=== PATIENT | male | born 1935 | race Caucasian/White ===

== ENCOUNTER 2018-11-29 09:56 | Observation (INO) | payer MEDICARE, BC ==
[~2018-11-29 09:56] MED LIST: CEFAZOLIN 1 GM INJ; SEVOFLURANE 15 MIN
[2018-11-29] MEDS: CEFAZOLIN 2 GM/50 ML (PMX) 50 ML IVPB (10:00)
[2018-11-29] MEDS: LACTATED RINGER'S 1,000 ML IV (10:00)
[2018-11-29] MEDS ORDERED: SUCCINYLCHOLINE CHLORIDE 100 MG/5 ML SYG IV (11:41)
[2018-11-29] MEDS ORDERED: LIDOCAINE 2% (SDV) 5 ML INJ (11:41)
[2018-11-29] MEDS ORDERED: PROPOFOL 20 ML (11:41)
[2018-11-29] MEDS ORDERED: NEOSTIGMINE 3 MG/3 ML SYRINGE ×2 (11:41→11:56)
[2018-11-29] MEDS ORDERED: ROCURONIUM 50 MG INJ ×2 (11:41→11:56)
[2018-11-29] MEDS ORDERED: GLYCOPYRROLATE 0.4 MG INJ ×3 (11:41→11:56)
[2018-11-29] MEDS ORDERED: MEPERIDINE 100 MG INJ (11:42)
[2018-11-29] MEDS ORDERED: BISACODYL 10 MG SUPP PR (12:30)
[2018-11-29] MEDS ORDERED: NALOXONE (0.4 MG/ML) INJ IV (12:30)
[2018-11-29] MEDS ORDERED: CEPASTAT LOZENGE MT (12:30)
[2018-11-29] MEDS ORDERED: AL HYDROX/MG HYDROX/SIMETH 30 ML CUP PO (12:30)
[2018-11-29] MEDS ORDERED: DIPHENHYDRAMINE 25 MG CAP PO (12:30)
[2018-11-29] MEDS ORDERED: ACETAMINOPHEN 325 MG TAB PO (12:30)
[2018-11-29] MEDS ORDERED: DIPHENHYDRAMINE 50 MG INJ IV ×2 (12:30→14:30)
[2018-11-29] MEDS: THROMBIN 5000 UNIT VIAL (13:44)
[2018-11-29] MEDS: BUPIVACAINE 0.25%/EPI (SDV) 30 ML INJ (13:44)
[2018-11-29] MEDS: CA CHLORIDE 10% 10 ML SYRINGE (13:45)
[2018-11-29] MEDS: POLYMYXIN/BACITRACIN 1L IRRIG (13:46)
[2018-11-29] MEDS ORDERED: ATROPINE 1 MG/10 ML SYRINGE (13:54)
[2018-11-29] MEDS ORDERED: EPHEDrine 25 MG/5 ML SYG (13:54)
[2018-11-29] MEDS: HEPARIN 1000 UNITS/ML 10 ML INJ (13:56)
[2018-11-29] MEDS: GELATIN SIZE 100 SPONGE (13:59)
[2018-11-29] MEDS ORDERED: ONDANSETRON 4 MG INJ (14:13)
[2018-11-29] MEDS: BUPIVACAINE 0.25% (MPF) 30 ML INJ (14:27)
[2018-11-29] MEDS ORDERED: METOCLOPRAMIDE 10 MG INJ IV (14:30)
[2018-11-29] MEDS ORDERED: HYDROmorphONE 1 MG/5 ML IV SYRINGE IV ×3 (14:30)
[2018-11-29] MEDS ORDERED: MIDAZOLAM 1 MG/ML 2 ML INJ IV (14:30)
[2018-11-29] MEDS ORDERED: FENTAnyl 50 MCG/ML VIAL IV ×2 (14:30)
[2018-11-29] MEDS ORDERED: hydrALAzine 20 MG INJ IV (14:30)
[2018-11-29] MEDS ORDERED: LABETALOL HCL 20MG INJ IV (14:30)
[2018-11-29] MEDS ORDERED: EPHEDrine 25 MG/5 ML SYG IV (14:30)
[2018-11-29] MEDS ORDERED: ONDANSETRON 4 MG INJ IV (14:30)
[2018-11-29] MEDS ORDERED: MEPERIDINE 25 MG INJ IV (14:30)
[2018-11-29] MEDS: FENTAnyl 50 MCG/ML VIAL IV (15:43)
[2018-11-29] MEDS: D5W-0.45 NACL + KCL 20 MEQ 1,000 ML IV (16:39)
[2018-11-29] MEDS: FELODIPINE (ER) 5 MG TAB PO (18:18)
[2018-11-29] MEDS: oxyCODONE 5 MG TAB PO ×2 (18:31→22:19)
[2018-11-29] MEDS: DOCUSATE SODIUM 100 MG CAP PO (20:58)
[2018-11-29] MEDS: DOXAZOSIN 4 MG TAB PO (20:58)
[2018-11-29] MEDS ORDERED: DOXAZOSIN 2 MG TAB PO (21:00)
[2018-11-29] MEDS ORDERED: FAMOTIDINE 20 MG TAB PO (21:00)
[2018-11-30] MEDS: D5W-0.45 NACL + KCL 20 MEQ 1,000 ML IV ×2 (03:32→12:34)
[2018-11-30] MEDS: oxyCODONE 5 MG TAB PO ×3 (03:34→15:01)
[2018-11-30 05:33] LABS: ADD MAN DIFF? NO
[2018-11-30 05:39] LABS: BASOPHILS % 0.4 % (0.0-2.0); EOSINOPHILS # 0.1 10^3/ul (0.0-0.5); EOSINOPHILS % 0.9 % (0.0-7.0); HEMATOCRIT 36.9 % (42.0-52.0); HEMOGLOBIN 12.4 g/dl (14.0-18.0); LYMPHOCYTES # 0.7 10^3/ul (0.8-2.9); LYMPHOCYTES % 10.4 % (15.0-51.0); MEAN CORPUSCULAR HGB CONC 33.6 g/dl (32.0-37.0); MEAN CORPUSCULAR VOLUME 89.1 fl (82.0-101.0); MEAN PLATELET VOLUME 10.3 fl (7.4-10.4); MONOCYTE # 0.7 10^3/ul (0.3-0.9); MONOCYTES % 10.1 % (0.0-11.0); NEUTROPHIL # 5.3 10^3/ul (1.6-7.5); NEUTROPHILS % 77.9 % (39.0-77.0); PLATELET COUNT 168 10^3/UL (140-415); RED BLOOD COUNT 4.14 10^6/ul (4.70-6.10)
[2018-11-30 05:39] LABS: WHITE BLOOD COUNT 6.8 10^3/ul (4.8-10.8)
[2018-11-30 06:14] LABS: ANION GAP 6 (5-13); BLOOD UREA NITROGEN 12 mg/dl (7-20); CALCIUM 8.4 mg/dl (8.4-10.2); CARBON DIOXIDE 28 mmol/L (21-31); CHLORIDE 105 mmol/L (97-110); CREATININE 0.94 mg/dl (0.61-1.24); GLUCOSE 116 mg/dl (70-220); MAGNESIUM 2.2 mg/dl (1.7-2.5); POTASSIUM 4.2 mmol/L (3.5-5.1); SODIUM 139 mmol/L (135-144)
[2018-11-30] MEDS: FELODIPINE (ER) 5 MG TAB PO (08:58)
[2018-11-30] MEDS: FAMOTIDINE 20 MG TAB PO (08:58)
[2018-11-30] MEDS: DOXAZOSIN 4 MG TAB PO (08:59)
[2018-11-30] MEDS: DOCUSATE SODIUM 100 MG CAP PO (08:59)
[2018-11-30] MEDS ORDERED: FELODIPINE (ER) 5 MG TAB PO (09:00)
[2018-11-30] MEDS ORDERED: FAMOTIDINE 20 MG TAB PO (09:00)
[2018-11-30 09:57] LABS: ADD UMIC YES; UR ASCORBIC ACID NEGATIVE (NEGATIVE); UR BILIRUBIN (Dip) NEGATIVE (NEGATIVE); UR BLOOD (Dip) 2+ mg/dL (NEGATIVE); UR CLARITY CLEAR (CLEAR); UR COLOR STRAW (YELLOW); UR GLUCOSE (Dip) NEGATIVE (NEGATIVE); UR KETONES (Dip) NEGATIVE (NEGATIVE); UR LEUKOCYTE ESTERASE (Dip) NEGATIVE Leu/ul (NEGATIVE); UR NITRITE (Dip) NEGATIVE (NEGATIVE); UR RBC 2 /HPF (0-5); UR SPECIFIC GRAVITY (Dip) 1.004 (1.003-1.030); UR TOTAL PROTEIN (Dip) NEGATIVE (NEGATIVE); UR UROBILINOGEN (Dip) NEGATIVE (NEGATIVE); UR WBC 1 /HPF (0-5)
[2018-11-30] MEDS: ONDANSETRON 4 MG INJ IV (10:26)
[2018-11-30] MEDS: HYDROmorphONE 0.5 MG/0.5 ML SYG IV ×2 (10:30→16:18)
== END 2018-11-30 17:10 | disposition home or self-care (01) ==
LOC: SDS 09:56 → MS1 16:23 → SDS 16:30 → REC 16:54 → MS1 17:27
DX: M48.061 Spinal stenosis, lumbar region without neurogenic claudication (principal); M54.16 Radiculopathy, lumbar region; G96.19 Other disorders of meninges, not elsewhere classified; I10 Essential (primary) hypertension; G47.30 Sleep apnea, unspecified; K21.9 Gastro-esophageal reflux disease without esophagitis
CPT/HCPCS: 63047; 72020; 80048; 81001; 83735; 85025; 86999; 87086; 88304; 97116; 97161; 97530